=== PATIENT | female | born 1950 | race Caucasian/White ===

== ENCOUNTER 2024-04-12 13:30 | Emergency (ER) | payer MEDICARE, OTHER ==
[2024-04-12] MEDS ORDERED: Ibuprofen 200 MG TAB ONE (15:03)
== END 2024-04-12 16:43 | disposition home or self-care (01) ==
LOC: MADERS 13:30
DX: R07.89 Other chest pain (principal); I10 Essential (primary) hypertension; W19.XXXA Unspecified fall, initial encounter
CPT/HCPCS: 70450; 71250